=== PATIENT | female | born 1950 | race Caucasian/White ===

== ENCOUNTER 2018-06-15 22:26 | Emergency (ER) | payer OTHER ==
[~2018-06-15] VITALS: Ht 160 cm; Wt 70.0 kg
[2018-06-15 22:28] VITALS: Ht 160 cm; Wt 70.0 kg
[2018-06-16 02:43] VITALS: BP 122/63; PULSE 68; RESP 18
[2018-06-16] MEDS ORDERED: PRED20TA PO (03:06)
[2018-06-16] MEDS ORDERED: ALBU18HF INHALATION (03:06)
[2018-06-16] MEDS ORDERED: AZIT250T PO (03:06)
--- NOTE | 2018-06-16 03:09 | ERD ---
ER Documentation Chief Complaint Chief Complaint dizziness with n/v started this morning HPI This is a very pleasant 67-year-old female comes in with points of cough for the past 2-3 days. After cough patient has noted some posttussive vomiting. Cough is mildly productive with greenish sputum. Also complains of body aches. Posi tive fevers but no chills. No sick contacts. No other current issues. ROS All systems reviewed and are negative except as per history of present illness. Medications Home Meds Active Scripts Albuterol Sulfate* (Ventolin HFA*) 18 Gm Hfa.aer.ad, 2 PUFF INHALATION Q4H, #1 INHALER Prov:VERONICA POTTER 06/16/18 Prednisone* (Prednisone*) 20 Mg Tab, 40 MG PO DAILY for 4 Days, TAB Prov:VERONICA POTTER 06/16/18 Azithromycin* (Zithromax*) 250 Mg Tablet, 250 MG PO .ZPACK DIRECTED, #6 TAB TAKE 500 MG (2 TABS) THE FIRST DAY THEN 250 MG (1 TAB) DAYS 2-5 Prov:VERONICA POTTER 06/16/18 PMhx/Soc History of Surgery: No Anesthesia Reaction: No Hx Neurological Disorder: No Hx Respiratory Disorders: No Hx Cardiac Disorders: No Hx Psychiatric Problems: No Hx Miscellaneous Medical Probl: Yes (HYPOTHYROIDISM, HIGH CHOLESTEROL) Hx Alcohol Use: No Hx Substance Use: No Hx Tobacco Use: No Smoking Status: Never smoker Physical Exam Vitals Vital Signs Date Temp Pulse Resp B/P (MAP) Pulse Ox O2 O2 Flow FiO2 Time Delivery Rate 06/16/18 98.1 68 18 122/63 96 Room Air 02:43 (82) 06/16/18 98.1 64 18 120/62 96 Room Air 01:40 (81) 06/15/18 98.1 70 18 153/74 99 22:28 (100) Physical Exam Const: No acute distress Head: Atraumatic Eyes: Normal Conjunctiva ENT: Normal External Ears, Nose and Mouth. Neck: Full range of motion. No meningismus. Resp: Clear to auscultation bilaterally Cardio: Regular rate and rhythm, no murmurs Abd: Soft, non tender, non distended. Normal bowel sounds Skin: No petechiae or rashes Back: No midline or flank tenderness Ext: No cyanosis, or edema Neur: Awake and alert Psych: Normal Mood and Affect Result Diagram: 06/16/187 06/16/18 0147 Results 24 hrs Laboratory Tests Test 06/16/18 01:47 White Blood Count 7.3 10^3/ul Red Blood Count 4.57 10^6/ul Hemoglobin 13.9 g/dl Hematocrit 40.1 % Mean Corpuscular Volume 87.7 fl Mean Corpuscular Hemoglobin 30.4 pg Mean Corpuscular Hemoglobin Concent 34.7 g/dl Red Cell Distribution Width 11.6 % Platelet Count 144 10^3/UL Mean Platelet Volume 11.0 fl Immature Granulocytes % 0.400 % Neutrophils % 82.7 % Lymphocytes % 10.1 % Monocytes % 6.6 % Eosinophils % 0.1 % Basophils % 0.1 % Nucleated Red Blood Cells % 0.0 /100WBC Immature Granulocytes # 0.030 10^3/ul Neutrophils # 6.0 10^3/ul Lymphocytes # 0.7 10^3/ul Monocytes # 0.5 10^3/ul Eosinophils # 0.0 10^3/ul Basophils # 0.0 10^3/ul Nucleated Red Blood Cells # 0.0 10^3/ul Sodium Level 139 mmol/L Potassium Level 3.4 mmol/L Chloride Level 101 mmol/L Carbon Dioxide Level 28 mmol/L Anion Gap 10 Blood Urea Nitrogen 8 mg/dl Creatinine 0.54 mg/dl Est Glomerular Filtrat Rate mL/min > 60 mL/min Glucose Level 136 mg/dl Calcium Level 9.6 mg/dl Total Bilirubin 0.4 mg/dl Direct Bilirubin 0.00 mg/dl Indirect Bilirubin 0.4 mg/dl Aspartate Amino Transf (AST/SGOT) 35 IU/L Alanine Aminotransferase (ALT/SGPT) 20 IU/L Alkaline Phosphatase 74 IU/L Creatine Kinase 108 IU/L Creatine Kinase Index 0.9 Creatinine Kinase MB (Mass) 0.95 ng/ml Troponin I < 0.012 ng/ml B-Type Natriuretic Peptide 152 PG/ML Total Protein 8.0 g/dl Albumin 4.6 g/dl Globulin 3.40 g/dl Albumin/Globulin Ratio 1.35 Procedures/MDM EKG: Rate/Rhythm: [Normal Sinus Rhythm] QRS, ST, T-waves: [No changes consistent w/ acute ischemia] Impression: [No evidence of ischemia or arrhythmia] Chest X-ray 1V Interpreted by me: Soft Tissue: No acute abnormalities Bones: No acute abnormalities Mediastinum/Cardiac Silhouette/Lungs: [No acute abnormalities] Medical decision making: This is a very pleasant [age]-year-old female likely has acute bronchitis and some posttussive vomiting. At this point she is clinically stable and feels much better. Patient will be discharged home with azithromycin, prednisone, albuterol. She is advised to follow-up with a primary care physician return for worsening symptoms. Departure Diagnosis: Primary Impression: Bronchitis Condition: Stable Patient Instructions: Bronchitis With Wheezing (Adult) VERONICA POTTER Jun 16, 2018 03:09
== END 2018-06-16 03:21 | disposition home or self-care (01) ==
LOC: E/R 22:26
DX: J40 Bronchitis, not specified as acute or chronic (principal); E03.9 Hypothyroidism, unspecified; R42 Dizziness and giddiness
CPT/HCPCS: 36415; 71045; 80053; 82550; 82553; 83880; 84484; 85025; 93005